=== PATIENT | male | born 1985 | race Two or more races ===

== ENCOUNTER 2023-02-12 03:04 | Emergency (ER) | payer OTHER ==
[~2023-02-12] VITALS: Ht 190.5 cm; Wt 112.5 kg
[2023-02-12 04:31] LABS: HEMATOCRIT 43.4 % (39.0-48.0); HEMOGLOBIN 14.8 g/dL (13-16.00); MEAN CELL VOLUME 88.2 fL (80.0-100.00); PLATELET COUNT 348 K/uL (150-450); RED BLOOD COUNT 4.93 M/uL (4.00-6.00); RED CELL DISTRIBUTION WIDTH 14.9 % (11.5-14.5)
[2023-02-12 05:25] LABS: URINE APPEARANCE Clear; URINE BILIRRUBIN Negative (NEGATIVE); URINE BLOOD Moderate; URINE COLOR Yellow; URINE GLUCOSE Negative (NEGATIVE); URINE LEUKOCYTE Moderate; URINE NITRATE Negative; URINE UROBILINOGEN 0.2 E.U./dl
[2023-02-12 05:28] LABS: URINE BACTERIA 41.5 uL (0.0-1933); URINE EPITHELIAL CELLS 57.3 uL (0.0-38.8); URINE RBC 200.4 uL (0.0-20.8)
[2023-02-12 05:52] LABS: URINE PROTEIN 100 (NEGATIVE)
[2023-02-12 07:09] LABS: ALBUMIN 3.3 gm/dL (3.4-5.0); BILIRUBIN TOTAL 0.34 mg/dL (0.3-1.2); CALCIUM 8.8 mg/dL (8.5-10.1); CREATININE SERUM 0.88 mg/dL (0.70-1.30); GFR 97.44; GLOBULINA 3.6 G/DL (2.4-3.5); POTASSIUM 4.33 mEq/L (3.5-5.1); TOTAL PROTEIN 6.9 gm/dL (6.4-8.2)
[2023-02-12] MEDS ORDERED: PEPCID40 MG PO (08:28)
[2023-02-12] MEDS ORDERED: ONDANSETRON ODT4 MG PO (08:28)
[2023-02-12] MEDS ORDERED: PROTONIX40 MG PO (08:28)
== END 2023-02-12 08:49 | disposition home or self-care (01) ==
LOC: ER 03:04
PROVIDERS: General Practice
DX: R10.13 Epigastric pain (principal)

== ENCOUNTER 2023-10-01 08:07 | Emergency (ER) | payer OTHER ==
[~2023-10-01] VITALS: Ht 190.5 cm; Wt 111.1 kg
[~2023-10-01 08:07] MED LIST: ONDANSETRON ODT4 MG PO; PEPCID40 MG PO; PROTONIX40 MG PO
[2023-10-01] MEDS ORDERED: TAMSULOSIN HCL 0.4 MG CAP PO ONE (09:30)
[2023-10-01] MEDS ORDERED: KETOROLAC TROMETHAMINE 30 MG VIAL IV ONE (09:30)
[2023-10-01] MEDS ORDERED: 0.9 % SODIUM CHLORIDE 1,000 ML IV SCH (09:30)
[2023-10-01] MEDS ORDERED: ONDANSETRON HCL 2 MG/ML VIAL IV ONE (09:30)
[2023-10-01 10:00] LABS: PH,URINE 5.5 (5.0-8.0); URINE APPEARANCE Cloudy; URINE BILIRRUBIN Small (NEGATIVE); URINE BLOOD Large; URINE COLOR Orange; URINE GLUCOSE Negative (NEGATIVE); URINE LEUKOCYTE Small; URINE NITRATE Negative
[2023-10-01 10:04] LABS: URINE BACTERIA 278.4 uL (0.0-1933); URINE EPITHELIAL CELLS 24.7 uL (0.0-38.8)
[2023-10-01 10:09] LABS: HEMOGLOBIN 13.8 g/dL (13-16.00); MEAN CELL VOLUME 89.2 fL (80.0-100.00); MEAN CORPUSCULAR HEMOGLOBIN 30.1 pg (27.00-32.0); MEAN CORPUSCULAR HGB CONC 33.7 g/dl (32.0-36.0); PLATELET COUNT 367 K/uL (150-450)
[2023-10-01 10:12] LABS: URINE PROTEIN 300 (NEGATIVE); URINE RBC > 10558.9 uL (0.0-20.8)
[2023-10-01 10:35] LABS: ALBUMIN 3.3 gm/dL (3.4-5.0); BILIRUBIN TOTAL 0.26 mg/dL (0.3-1.2); CALCIUM 9.3 mg/dL (8.5-10.1); CREATININE SERUM 0.98 mg/dL (0.70-1.30); GFR 86.06; GLOBULINA 4.1 G/DL (2.4-3.5); POTASSIUM 4.28 mEq/L (3.5-5.1); TOTAL PROTEIN 7.4 gm/dL (6.4-8.2)
[2023-10-01] MEDS ORDERED: CEFTRIAXONE SODIUM 2,000 MG VIAL IV ONE (10:45)
[2023-10-01] MEDS ORDERED: MEPERIDINE HCL/PF 50 MG/ML VIAL IM ONE (11:00)
[2023-10-01] MEDS ORDERED: TAMS0.4C PO (11:58)
[2023-10-01] MEDS ORDERED: CIPRO500 MG PO (11:58)
[2023-10-01] MEDS ORDERED: KETO10TA2 PO (11:58)
== END 2023-10-01 12:43 | disposition home or self-care (01) ==
LOC: ER 08:08
PROVIDERS: General Practice
DX: N20.9 Urinary calculus, unspecified (principal); N20.0 Calculus of kidney; K57.30 Diverticulosis of large intestine without perforation or abscess without bleeding